=== PATIENT | male | born 2000 | race African-American/Black ===

== ENCOUNTER 2021-01-08 03:31 | Emergency (ER) | payer BC ==
[~2021-01-08] VITALS: Ht 185.5 cm; Wt 81.2 kg
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
[2021-01-08] MEDS ORDERED: FLUORESCEIN (FLUOR-I-STRIPS) 1 MG STRP ONE (03:51)
[2021-01-08] MEDS ORDERED: TETRACAINE 0.5% OPHTH SOLN 4 ML BTL (SINGLE DOSE ONLY) ONE (03:51)
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
[2021-01-08] MEDS ORDERED: TETRACAINE 0.5% OPHTH SOLN 4 ML BTL (SINGLE DOSE ONLY) OU ONE (04:00)
[2021-01-08] MEDS ORDERED: FLUORESCEIN (FLUOR-I-STRIPS) 1 MG STRP OU ONE (04:00)
[2021-01-08] MEDS ORDERED: NS IV 1000 ML 1,000 ML IV ONE (04:15)
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
[2021-01-08] MEDS ORDERED: RX-TOBRAMYCIN 0.3% OPHTH (TOBREX) SOLN 5 ML BTL OP STA (05:23)
[2021-01-08] MEDS ORDERED: ONDA4TAB11 PO (05:32)
[2021-01-08 05:41] VITALS: BP 117/79
== END 2021-01-08 05:41 | disposition home or self-care (01) ==
LOC: ER 03:37
DX: S06.0X1A Concussion with loss of consciousness of 30 minutes or less, initial encounter (principal); S01.81XA Laceration without foreign body of other part of head, initial encounter; T15.01XA Foreign body in cornea, right eye, initial encounter; Y04.8XXA Assault by other bodily force, initial encounter
CPT/HCPCS: 12001; 70450; 70486; 72125

== ENCOUNTER 2021-01-14 14:36 | Emergency (ER) | payer BC ==
[~2021-01-14] VITALS: Ht 180 cm; Wt 72.0 kg
[~2021-01-14 14:36] MED LIST: ONDA4TAB11 PO
== END 2021-01-14 14:55 | disposition home or self-care (01) ==
LOC: EDUNIT# 14:36 → ER 14:38
DX: Z48.02 Encounter for removal of sutures (principal)

== ENCOUNTER 2021-11-06 05:20 | Emergency (ER) | payer BC ==
[~2021-11-06] VITALS: Ht 187 cm; Wt 77.0 kg
[2021-11-06] MEDS ORDERED: ORPHENADRINE 60 MG/2 ML (NORFLEX) AMP (ED ONLY) IM ONE (05:45)
[2021-11-06] MEDS ORDERED: KETOROLAC 60 MG/2 ML VIAL IM ONE (05:45)
--- NOTE | 2021-11-06 05:46 | ED Lower Extremity ---
General Chief Complaint: Lower Extremity Stated Complaint: RT KNEE LOCKED Nursing Triage Note: patient states last night sitting in computer chair playing video games states when he went to stand his "knee" locked up. Patient unable to straighten right leg. states painful. Source: patient Exam Limitations: no limitations (FCO PAGAN) History of Present Illness Date Seen by Provider: Nov 06, 2021 Time Seen by Provider: 05:27 Initial Comments Patient to the ER by private conveyance with his significant other and chief complaint that sometime around 2100 yesterday evening he was sitting in his chair playing video games and when he went to stand up he could not extend his leg fully. He is having pain on attempts. He says he has a history of bad knees from playing basketball. He does not play routinely anymore. He does not have a history of any scopes or surgeries or evaluation of his knees. He does not follow with a orthopedic surgeon. He took some icy hot to his knee and that did not help so he decided to come in. He has not taken anything for pain or muscle relaxants. No previous meniscal injury that he is aware of. (FCO PAGAN) Allergies and Home Medications Allergies Coded Allergies: No Known Drug Allergies (Unverified , 01/08/21) Patient Home Medication List Home Medication List Reviewed: Yes (FCO PAGAN) Ondansetron (Ondansetron Odt) 4 Mg Tab.rapdis, 4 MG PO Q6H PRN for NAUSEA/VOMITING Prescribed by: FCO PAGAN on 01/08/21 0532 Review of Systems Constitutional: No chills, No diaphoresis EENTM: No hearing loss, No ear pain Respiratory: No cough, No dyspnea on exertion Cardiovascular: No chest pain, No palpitations Gastrointestinal: No abdominal pain, No constipation, No diarrhea Genitourinary: No decreased output, No dysuria Musculoskeletal: see HPI; No back pain; joint pain (FCO PAGAN) All Other Systems Reviewed Negative Unless Noted: Yes (FCO PAGAN) Past Sqbkxpz-Jbzezn-Ofmuav Hx Patient Social History Tobacco Use?: No Substance use?: Yes Substance type: Marijuana Additional substance use comme: states two days ago (FCO PAGAN) Physical Exam Vital Signs Vital Signs - First Documented 11/06/21 05:33 Temp 36.7 Pulse 59 Resp 20 B/P (MAP) 127/94 (105) Pulse Ox 96 O2 Delivery Room Air (INDER HARTMAN MD) Vital Signs Capillary Refill : Less Than 3 Seconds (FCO PAGAN) Height, Weight, BMI Height: '" Weight: lbs. oz. kg; 22.00 BMI Method:Estimated General Appearance: WD/WN, mild distress HEENT: PERRL/EOMI, pharynx normal Neck: full range of motion, normal inspection Cardiovascular: normal peripheral pulses, regular rate, rhythm Respiratory: no respiratory distress, no accessory muscle use Knees: left knee non-tender, left knee normal inspection, left knee normal range of motion, left knee no evidence of injury; right knee pain (Along the anterior tibial plateau and meniscus); bilateral knee other (Anterior posterior drawer test normal with tightness of the medial and lateral collateral ligaments.) Neurologic/Tendon: normal sensation, normal motor functions, normal tendon functions, responds to pain, no evidence tendon injury Neurologic/Psychiatric: alert, normal mood/affect, oriented x 3 Skin: normal color, warm/dry (FCO PAGAN) Progress/Results/Core Measures Results/Orders My Orders Orders - INDER HARTMAN MD Lidocaine 1% Inj 10 Ml (Xylocaine 1% Inj (11/06/21 07:45) (INDER HARTMAN MD) Medications Given in ED Current Medications Medications Dose Ordered Sig/Sana Route Start Time Stop Time Status Last Admin Dose Admin Ketorolac Tromethamine 60 mg ONCE ONCE IM 11/06/21 05:45 11/06/21 05:46 DC 11/06/21 05:57 60 MG Lidocaine HCl 20 ml ONCE ONCE INJ 11/06/21 07:45 11/06/21 07:46 DC 11/06/21 08:00 20 ML Orphenadrine Citrate 60 mg ONCE ONCE IM 11/06/21 05:45 11/06/21 05:46 DC 11/06/21 05:56 60 MG (INDER HARTMAN MD) Vital Signs/I&O 11/06/21 05:33 Temp 36.7 Pulse 59 Resp 20 B/P (MAP) 127/94 (105) Pulse Ox 96 O2 Delivery Room Air (INDER HARTMAN MD) Blood Pressure Mean: 105 Progress Progress Note : Time: 05:44 Progress Note Patient has an internal derangement of his right knee suspect perhaps a meniscal tear. His major ligaments of the right knee seem to be intact. His patella is not movable because of his spasm so were going to give him a shot of Toradol for his discomfort, and a shot of Norflex to help relax him. We will get a plain film of the x-ray to evaluate for baseline appearance and consider referral on to orthopedics. (FCO PAGAN) Progress Note : Time: 07:35 Progress Note Discussed with Dr Finch, recommends injecting the joint with 20-30ml of 1% lidocaine. Knee immobilizer and follow up with him in the office. (INDER HARTMAN MD) Diagnostic Imaging Diagonstic Imaging: Xray Plain Films/CT/US/NM/MRI: knee (right) Reviewed: Reviewed by Me (FCO PAGAN) Comments [facility], [place] NAME: GUNNER GILL MED REC#: [id number] PT STATUS: REG ER : 2000 PHYSICIAN: FCO PAGAN MD ADMIT DATE: 11/06/21/ER Draft Date of Exam:11/06/21 KNEE, RIGHT, 3 VIEWS Indication: Right knee pain. Findings: 3 view right knee showed no fracture, dislocation, loose body or joint effusion. Impression: Unremarkable right knee series. Dictated on workstation # [id number] Dict: 11/06/21 0659 Trans: 11/06/21 0701 [facility] [id number] Interpreted by: CARMINA NIX Electronically signed by: (INDER HARTMAN MD) Transfer of Care Time: 06:00 Care transferred to: Dr Hartman (FCO PAGAN) Departure Impression Primary Impression: Locked knee Qualified Codes: M23.91 - Unspecified internal derangement of right knee Disposition: 01 HOME, SELF-CARE Condition: Stable Departure-Patient Inst. Referrals: NO,LOCAL PHYSICIAN (PCP) Primary Care Physician AGUS FINCH MD Patient Instructions: Internal Derangement of the Knee Add. Discharge Instructions: Please wear the knee immobilizer until you follow up with Orthopedics. I have provided contact information with Dr Cherelle. Over the counter ibuprofen 600mg, (3 tablets) every 6 hours as needed for pain. Always take ibuprofen with food. Weight bearing as tolerated. Return to the Emergency Department for any new, concerning or emergent complaints. Work/School Note: Work Release Form Date Seen in the Emergency Department: Nov 06, 2021 Return to Work: Nov 07, 2021 Copy Copies To 1: AGUS FINCH MD, TITUS J Nov 06, 2021 05:46 INDER HARTMAN MD Nov 06, 2021 07:07
--- NOTE | 2021-11-06 07:01 | Diagnostic Imaging Report ---
Indication: Right knee pain. Findings: 3 view right knee showed no fracture, dislocation, loose body or joint effusion. Impression: Unremarkable right knee series. Dictated by: Dictated on workstation # [id number]
[2021-11-06] MEDS ORDERED: LIDOCAINE 1% INJ 10 ML VIAL INJ ONE (07:45)
[2021-11-06] MEDS ORDERED: LIDOCAINE 1% INJ 20 ML VIAL INJ ONE (07:45)
[2021-11-06 08:28] VITALS: BP 132/87
== END 2021-11-06 08:28 | disposition home or self-care (01) ==
LOC: EDUNIT# 05:20 → ER 05:23
DX: M23.91 Unspecified internal derangement of right knee (principal); Z28.310 Unvaccinated for COVID-19
CPT/HCPCS: 73562; 99284